=== PATIENT | male | born 1990 | race Caucasian/White ===

== ENCOUNTER → 2023-01-16 | Outpatient (REF) | LOC: M LAB 09:55 | PROVIDERS: ATTEND Nurse Practitioner Adult Health | DX: Z01.89 Encounter for other specified special examinations (principal) ==

== ENCOUNTER → 2023-05-01 | Outpatient (REF) | LOC: M EMP 08:58 | PROVIDERS: ATTEND Family Medicine | DX: J11.1 Influenza due to unidentified influenza virus with other respiratory manifestations (principal) ==

== ENCOUNTER 2024-09-12 15:00 | Emergency (ER) | payer SELFPAY ==
[~2024-09-12] VITALS: Ht 180.3 cm; Wt 73.0 kg
[2024-09-12 15:03] VITALS: BP 112/70; TEMP 98.3; O2SAT 97
[2024-09-12] MEDS ORDERED: ACET-683 PO (15:06)
[2024-09-12] MEDS ORDERED: IBUP80TA PO (15:23)
[2024-09-12] MEDS ORDERED: AMOX875T2 PO (15:23)
== END 2024-09-12 15:39 | disposition home or self-care (01) ==
LOC: M ED 15:00
DX: K08.89 Other specified disorders of teeth and supporting structures (principal); K05.01 Acute gingivitis, non-plaque induced; K02.9 Dental caries, unspecified; Z79.1 Long term (current) use of non-steroidal anti-inflammatories (NSAID); Z79.2 Long term (current) use of antibiotics

== ENCOUNTER 2024-10-03 08:06 | Emergency (ER) | payer SELFPAY ==
[~2024-10-03] VITALS: Ht 180.3 cm; Wt 69.9 kg
[~2024-10-03 08:06] MED LIST: ACET-683 PO; AMOX875T2 PO; IBUP80TA PO
[2024-10-03 08:08] VITALS: TEMP 97.4
[2024-10-03 09:00] VITALS: BP 118/73; O2SAT 99
[2024-10-03] MEDS: AUGMENTIN 875 MG TAB PO ONE (09:38)
== END 2024-10-03 09:46 | disposition home or self-care (01) ==
LOC: M ED 08:06
DX: K02.9 Dental caries, unspecified (principal); K05.01 Acute gingivitis, non-plaque induced; K08.89 Other specified disorders of teeth and supporting structures; F17.200 Nicotine dependence, unspecified, uncomplicated; Z79.2 Long term (current) use of antibiotics; Z79.1 Long term (current) use of non-steroidal anti-inflammatories (NSAID)